=== PATIENT | female | born 1980 | race Caucasian/White ===

== ENCOUNTER 2016-12-30 09:35 | Emergency (ER) | payer OTHER ==
[~2016-12-30] VITALS: Ht 160 cm; Wt 70.3 kg
[2016-12-30] MEDS ORDERED: SODIUM CHLORIDE 0.9% 250 ML IV ONE (09:48)
[2016-12-30] MEDS: LORazepam 2MG/ML-1ML VIAL IV ONE ×2 (10:09→10:20)
[2016-12-30] MEDS: ONDANSETRON HCL 4 MG/2 ML VIAL IV ONE ×2 (10:09→10:21)
[2016-12-30 10:14] VITALS: BP 143/93
== END 2016-12-30 11:59 | disposition home or self-care (01) ==
LOC: ER 09:35 → EDBD 09:35 → ER 11:59
DX: R51 Headache (principal); M54.2 Cervicalgia; M79.605 Pain in left leg; M79.604 Pain in right leg; R11.10 Vomiting, unspecified; R10.11 Right upper quadrant pain; V49.40XA Driver injured in collision with unspecified motor vehicles in traffic accident, initial encounter; Y93.89 Activity, other specified; Y99.8 Other external cause status; Y92.488 Other paved roadways as the place of occurrence of the external cause
CPT/HCPCS: 70450; 72125; 96360; 96361; 99285; J2060; J2405; J7050